=== PATIENT | male | born 1945 | race Caucasian/White ===

== ENCOUNTER 2018-07-12 07:21 | Day surgery (SDC) | payer MEDICARE, BC ==
[~2018-07-12 07:21] MED LIST: Lidocaine 1% with EPINEPHrine 1:100,000 20 ML MDV ONE
[2018-07-12] MEDS ORDERED: Lactated Ringers 1,000 ML IV SCH (07:30)
[2018-07-12] MEDS ORDERED: ceFAZolin 2 GM in Premix Bag 1 BAG IV ONE (08:30)
[2018-07-12] MEDS ORDERED: fentaNYL 100 MCG/2 ML SDV IV ONE (09:10)
[2018-07-12] MEDS ORDERED: Dexamethasone 4 MG/ML 5 ML MDV IVPUSH ONE (09:10)
[2018-07-12] MEDS ORDERED: Midazolam 1 MG/ML 2 ML SDV IV ONE (09:10)
[2018-07-12] MEDS ORDERED: Ketorolac 30 MG/ML SDV IVPUSH ONE (09:10)
[2018-07-12] MEDS ORDERED: Ondansetron 4 MG/2 ML SDV IVPUSH ONE (09:10)
[2018-07-12] MEDS ORDERED: ePHEDrine 50 MG/ML SDV IV ONE (09:10)
[2018-07-12] MEDS ORDERED: Propofol 200 MG/20 ML SDV IV ONE (09:10)
[2018-07-12] MEDS ORDERED: Lidocaine 1% with EPINEPHrine 1:100,000 20 ML MDV ONE (09:30)
[2018-07-12] MEDS ORDERED: Bupivacaine 0.5% 30 ML SDV ONE (09:30)
--- NOTE | 2018-07-12 10:01 | PCM.OPNOTE ---
- General Post-Op/Procedure Note Date of Surgery/Procedure: 07/12/18 Operative Procedure(s): I+D and excision of left groin abscess Findings: abscess left groin Pre Op Diagnosis: left groin abscess Post-Op Diagnosis: Same Anesthesia Technique: General LMA, Local (2 ml 1 % lido with epi/0.5% buvipicaine) Primary Surgeon: Kalyan Dailey Anesthesia Provider: Diamond Cartwright Pathology: abscess wall cultures and gram stain Surgical Drain/Tube Type: Jose Drain Drain/Tube Comments:: 19FR Complications: None Condition: Good Free Text/Narrative:: see dictation
--- NOTE | 2018-07-12 12:32 | OR ---
DATE OF OPERATION: 07/12/2018 SURGEON: Kalyan Dailey MD PROCEDURE PERFORMED: I and D of left groin abscess with excision of abscess wall. PREOPERATIVE DIAGNOSIS: Abscess of left groin. POSTOPERATIVE DIAGNOSIS: Abscess of left groin. INDICATIONS FOR PROCEDURE: This is a 72-year-old white male who was referred with a mass in his left inguinal area. Subsequent evaluation demonstrated what appeared to be a cystic mass, suggestive of an abscess. Attempts at aspiration and culture demonstrated persistence of the lesion; however, the cultures were negative. Due to the persistence of the mass, we offered and accepted I and D and excision of the wall. INTRAOPERATIVE FINDINGS: Abscess cavity was entered. It was approximately 5 cm in diameter x 2 cm. Thick creamy purulent material was in the abscess itself, and this was sent for aerobic and anaerobic culture as well as Gram stain. A 19- [place] Jose drain was used and 2 mL of 1:1 mixture of 1% lidocaine with epinephrine and 0.5% bupivacaine was also used. DESCRIPTION OF PROCEDURE: After an excellent LMA anesthetic was administered, the patient was prepped and draped in the usual sterile manner. A vertical midline incision was made, and the abscess cavity was entered. The material was sent for culture as mentioned in the findings. After draining the abscess, the wall of the abscess was excised using sharp dissection. Bleeding points were controlled with electrocautery. A 19-Burkin[place] Jose drain was then inserted through a separate stab incision into the cavity, and the wound was closed with interrupted 3-0 nylon. The patient was taken to recovery room in a good condition. /[id number] /SAMUELL
== END 2018-07-12 11:22 | disposition home or self-care (01) ==
LOC: FB.SDS 07:21
PROVIDERS: ATTEND Surgery
DX: L02.214 Cutaneous abscess of groin (principal); I10 Essential (primary) hypertension; N40.1 Benign prostatic hyperplasia with lower urinary tract symptoms; R35.1 Nocturia; Z79.82 Long term (current) use of aspirin; Z79.899 Other long term (current) drug therapy
CPT/HCPCS: 10061; 87070; 87075; 87102; 87205; 87206; J0690; J3490; J7120; 00860; 88304; J1100; J1885; J2250; J2405; J2704; J3010